=== PATIENT | male | born 1965 | race Hispanic/Latino ===

== ENCOUNTER 2020-01-11 | Emergency (ER) | payer MEDICAID | END 2020-01-11 16:19 | disposition home or self-care (01) ==

== ENCOUNTER 2020-01-14 23:03 | Emergency (ER) | payer MEDICAID | END 2020-01-15 00:17 | disposition home or self-care (01) | LOC: EDH 23:03 | DX: S01.501A Unspecified open wound of lip, initial encounter (principal); H92.02 Otalgia, left ear; F31.9 Bipolar disorder, unspecified; I10 Essential (primary) hypertension; F41.9 Anxiety disorder, unspecified; M19.90 Unspecified osteoarthritis, unspecified site; W51.XXXA Accidental striking against or bumped into by another person, initial encounter; Y93.89 Activity, other specified; Y92.89 Other specified places as the place of occurrence of the external cause; Y99.8 Other external cause status ==

== ENCOUNTER 2020-01-26 22:30 | Emergency (ER) | payer MEDICAID ==
[2020-01-26] MEDS ORDERED: ACETAMINOPHEN EXTRA STRENGTH 500 MG TABLET ONE (23:46)
[2020-01-27] MEDS ORDERED: DEXAMETHASONE 4 MG TAB ONE (00:41)
--- NOTE | 2020-01-30 08:31 | NUR ---
pt called to get Covid results; advised pt that he tested Covid positive
== END 2020-01-27 01:00 | disposition home or self-care (01) ==
LOC: EDH 22:30
DX: U07.1 COVID-19 (principal); B34.9 Viral infection, unspecified; F41.9 Anxiety disorder, unspecified; F31.9 Bipolar disorder, unspecified; I10 Essential (primary) hypertension; Z79.899 Other long term (current) drug therapy
CPT/HCPCS: 36415; 71045; 93005; 99285; J8540; U0003